=== PATIENT | female | born 1970 | race Hispanic/Latino ===

== ENCOUNTER 2024-01-24 19:19 | Inpatient (IN) | payer OTHER ==
[2024-01-24 19:48] LABS: #Basophils 0.04 10x3/uL (0.0-0.2); %Basophils 0.4 % (0.0-1.0); %Eosinophils 1.5 % (0.0-10.0); %Lymphocytes 22.7 % (21.0-51.0); %Monocytes 8.1 % (0.0-10.0); %Neutrophils 66.9 % (42.0-75.0); Hematocrit 29.7 % (36.0-47.0); Hemoglobin 9.8 g/dL (12.0-16.0); Mean Corpuscular Hemoglobin 31.2 pg (27.0-31.0); Mean Corpuscular Volume 94.6 fL (78.0-98.0); Mean Platelet Volume 10.1 fL (7.4-10.4); Platelet Count 257 10x3/uL (130-400); RBC Distribution Width 12.3 % (11.5-14.5); Red Blood Cell (RBC) Count 3.14 mill/uL (4.20-5.40)
[2024-01-24 20:11] LABS: ALT (SGPT) 23 U/L (8-55); AST (SGOT) 48 U/L (5-34); Albumin 3.2 g/dL (3.5-5.0); Alkaline Phosphatase 80 U/L (40-110); Anion Gap 16 mmol/L (10-20); BUN (Urea Nitrogen) 44 mg/dL (9.8-20.1); Bilirubin, Total 0.4 mg/dL (0.2-1.2); Calc. Creatinine Clearance 0 mL/min (70-130); Calcium 8.6 mg/dL (7.8-10.44); Carbon Dioxide 18 mmol/L (22-29); Chloride 109 mmol/L (98-107); Estimated GFR 31; Glucose 160 mg/dL (70-105); Potassium 4.5 mmol/L (3.5-5.1); Protein, Total 7.2 g/dL (6.0-8.3); Sodium 138 mmol/L (136-145)
[2024-01-24 20:18] LABS: Troponin I 16.884 ng/mL (< 0.028)
[2024-01-24] MEDS ORDERED: Heparin 25,000 UNITS/D5W 500 ml bag ONE (20:26)
[2024-01-24] MEDS ORDERED: Aspirin Chewable 81 MG TAB ONE (20:26)
[2024-01-24] MEDS ORDERED: Heparin 10,000 UNITS/ 10 ML VIAL ONE (20:26)
[2024-01-24 20:54] LABS: INR-International Normal Ratio 1.2; PTT 33.7 sec (22.9-36.1); Prothrombin Time 15.4 sec (12.0-14.7)
[2024-01-24] MEDS ORDERED: Furosemide 20 MG (2 mL) VIAL ONE (22:29)
[2024-01-24 22:33] LABS: #Basophils 0.05 10x3/uL (0.0-0.2); %Basophils 0.6 % (0.0-1.0); %Eosinophils 1.1 % (0.0-10.0); %Lymphocytes 19.7 % (21.0-51.0); %Monocytes 7.9 % (0.0-10.0); %Neutrophils 70.5 % (42.0-75.0); Hematocrit 27.7 % (36.0-47.0); Hemoglobin 9.3 g/dL (12.0-16.0); Mean Corpuscular HGB CONC 33.6 g/dL (32.0-36.0); Mean Corpuscular Hemoglobin 32.2 pg (27.0-31.0); Mean Corpuscular Volume 95.8 fL (78.0-98.0); Mean Platelet Volume 10.1 fL (7.4-10.4); Platelet Count 223 10x3/uL (130-400); RBC Distribution Width 12.3 % (11.5-14.5); Red Blood Cell (RBC) Count 2.89 mill/uL (4.20-5.40)
[2024-01-24] MEDS ORDERED: Acetaminophen 325 MG TAB PO PRN (22:33)
[2024-01-24] MEDS ORDERED: Dextrose 50% Abboject 50 ML SYRINGE SLOW IVP PRN (22:43)
[2024-01-24] MEDS ORDERED: Insulin Lispro 100 UNIT/ML 10 ML VIAL SC PRN (22:43)
[2024-01-24] MEDS ORDERED: Dextrose 5% in Water 1,000 ML IV PRN (22:43)
[2024-01-24] MEDS ORDERED: Glucagon 1 MG/ML KIT IM PRN (22:43)
[2024-01-24 22:50] LABS: Anion Gap 17 mmol/L (10-20); BUN (Urea Nitrogen) 43 mg/dL (9.8-20.1); Calc. Creatinine Clearance 0 mL/min (70-130); Calcium 8.1 mg/dL (7.8-10.44); Carbon Dioxide 14 mmol/L (22-29); Chloride 109 mmol/L (98-107); Estimated GFR 34; Glucose 165 mg/dL (70-105); Potassium 4.3 mmol/L (3.5-5.1); Sodium 136 mmol/L (136-145)
[2024-01-24 23:14] LABS: Critical Call Chem Troponin I RESULT DECREASING; Troponin I 15.838 ng/mL (< 0.028)
[2024-01-24] MEDS ORDERED: Heparin 25,000 units/D5W 500 ML IVPB SCH (23:15)
[2024-01-24 23:33] LABS: Actual Bicarbonate (HCO3v) 18.4 mEq/L (22-28); Analyzer IN Cardio ER; Base Excess -7.6 mEq/L (-2.0 to +3.0); Calcium, Ionized (venous) 1.07 mmol/L (1.16-1.32); Chloride (VBG) 107 mmol/L (98-106); Hematocrit-VBG 19 % (36.0-47.0); Hemoglobin (Hb) 6.6 g/dL (11.7-16.0); Potassium (VBG) 4.26 mmol/L (3.70-5.30); Sodium 137 mmol/L (133-146); pH (venous) 7.286 (7.32-7.43)
[2024-01-24] MEDS: Heparin 10,000 UNITS/ 10 ML VIAL SLOW IVP SCH (23:34)
[2024-01-24] MEDS: Nitroglycerin 2% Ointment 1 INCH/1 GM Packet TOP SCH (23:40)
[2024-01-24] MEDS: Pantoprazole 40 MG VIAL IVP SCH (23:43)
[2024-01-24] MEDS: Sodium Bicarb 50 MEQ/50 ML Abboject 8.4% SYRINGE IVP SCH ×2 (23:58→23:59)
[2024-01-25] MEDS: Heparin 5,000 UNITS/ML VIAL SLOW IVP SCH (00:09)
[2024-01-25 02:15] LABS: Critical Call Chem Troponin I RESULT DECREASING; Troponin I 15.074 ng/mL (< 0.028)
[2024-01-25 04:03] LABS: #Basophils 0.03 10x3/uL (0.0-0.2); %Basophils 0.4 % (0.0-1.0); %Lymphocytes 21.6 % (21.0-51.0); %Monocytes 7.3 % (0.0-10.0); %Neutrophils 69.3 % (42.0-75.0); Hematocrit 25.7 % (36.0-47.0); Hemoglobin 8.5 g/dL (12.0-16.0); Mean Corpuscular HGB CONC 33.1 g/dL (32.0-36.0); Mean Corpuscular Hemoglobin 31.3 pg (27.0-31.0); Mean Corpuscular Volume 94.5 fL (78.0-98.0); Mean Platelet Volume 10.7 fL (7.4-10.4); Platelet Count 222 10x3/uL (130-400); RBC Distribution Width 12.4 % (11.5-14.5); Red Blood Cell (RBC) Count 2.72 mill/uL (4.20-5.40)
[2024-01-25 04:16] LABS: Hemoglobin A1c 7.4 % (4.0-6.0)
[2024-01-25 04:29] LABS: Anion Gap 16 mmol/L (10-20); BUN (Urea Nitrogen) 45 mg/dL (9.8-20.1); Calc. Creatinine Clearance 46 mL/min (70-130); Calcium 7.8 mg/dL (7.8-10.44); Carbon Dioxide 20 mmol/L (22-29); Cardiac Risk 4.8 (Less than 4.5); Chloride 106 mmol/L (98-107); Cholesterol 140 mg/dl (< 200 Desired); Estimated GFR 38; Glucose 170 mg/dL (70-105); HDL Cholesterol 29 mg/dL (>60 Neg Risk); LDL Cholesterol, Calculated 87 mg/dL; Potassium 3.8 mmol/L (3.5-5.1); Sodium 138 mmol/L (136-145); Triglycerides 118 mg/dL (Less than 150)
[2024-01-25] MEDS: Heparin 10,000 UNITS/ 10 ML VIAL SLOW IVP SCH (05:18)
[2024-01-25 05:30] VITALS: BMI 31.8
[2024-01-25] MEDS: Furosemide 20 MG (2 mL) VIAL SLOW IVP SCH (06:20)
[2024-01-25] MEDS: Polyethylene Glycol 3350 17 GM Packet PO SCH (08:25)
[2024-01-25] MEDS: Senokot S 8.6-50 MG TAB PO SCH (08:27)
[2024-01-25] MEDS: Pantoprazole 40 MG VIAL IVP SCH (08:32)
[2024-01-25] MEDS: FLU (Fluarix Triv) TS24-25(6MOS UP)/PF 45 MCG/0.5 ML Syringe IM ONE (08:39)
[2024-01-25] MEDS ORDERED: Heparin 10,000 UNITS/ 10 ML VIAL ONE (10:33)
[2024-01-25] MEDS ORDERED: Nitroglycerin 50 MG/250 ML BOT 0 ML ONE (10:33)
[2024-01-25 11:25] LABS: Hematocrit 26.2 % (36.0-47.0); Hemoglobin 8.9 g/dL (12.0-16.0)
[2024-01-25] MEDS ORDERED: Midazolam HCl 2 mg/2 ml Vial ONE (12:28)
[2024-01-25] MEDS ORDERED: Iopamidol 370 76% 100 ML VIAL ONE (13:38)
[2024-01-25] MEDS: Atorvastatin Calcium 40 MG TAB PO SCH (21:00)
[2024-01-26 04:41] LABS: #Basophils 0.04 10x3/uL (0.0-0.2); %Basophils 0.6 % (0.0-1.0); %Eosinophils 2.3 % (0.0-10.0); %Lymphocytes 22.5 % (21.0-51.0); %Monocytes 10.3 % (0.0-10.0); Hematocrit 27.3 % (36.0-47.0); Hemoglobin 8.9 g/dL (12.0-16.0); Mean Corpuscular HGB CONC 32.6 g/dL (32.0-36.0); Mean Corpuscular Hemoglobin 31.7 pg (27.0-31.0); Mean Corpuscular Volume 97.2 fL (78.0-98.0); Mean Platelet Volume 10.3 fL (7.4-10.4); Platelet Count 247 10x3/uL (130-400); RBC Distribution Width 12.4 % (11.5-14.5); Red Blood Cell (RBC) Count 2.81 mill/uL (4.20-5.40)
[2024-01-26 04:57] LABS: Hemoglobin A1c 7.4 % (4.0-6.0)
[2024-01-26 07:36] LABS: Anion Gap 15 mmol/L (10-20); BUN (Urea Nitrogen) 42 mg/dL (9.8-20.1); Calc. Creatinine Clearance 41 mL/min (70-130); Carbon Dioxide 19 mmol/L (22-29); Chloride 108 mmol/L (98-107); Estimated GFR 34; Glucose 178 mg/dL (70-105); Magnesium 2.3 mg/dL (1.6-2.6); Potassium 4.1 mmol/L (3.5-5.1); Sodium 138 mmol/L (136-145)
[2024-01-26] MEDS: Clopidogrel Bisulfate 300 MG TAB PO SCH (08:18)
[2024-01-26] MEDS: Carvedilol 3.125 MG TAB PO SCH (08:18)
[2024-01-26] MEDS: Aspirin 81 mg Enteric Coated Tablet PO SCH (08:18)
[2024-01-26] MEDS: Enoxaparin 80 MG (0.8 mL) SYRINGE SC SCH (08:18)
[2024-01-26] MEDS: Insulin Lispro 100 UNIT/ML 10 ML VIAL SC PRN (18:00)
[2024-01-26 19:08] LABS: Influenza A by NAA Not Detected (NotDetected); Influenza B by NAA Not Detected (NotDetected); RSV by NAA DETECTED (NotDetected); SARS-CoV-2 NAA Rapid Test Not Detected (NotDetected)
[2024-01-26] MEDS: Ondansetron PF 4 MG/2 ML Vial IVP PRN (20:45)
[2024-01-27 04:44] LABS: #Basophils 0.04 10x3/uL (0.0-0.2); %Basophils 0.6 % (0.0-1.0); %Eosinophils 3.5 % (0.0-10.0); %Lymphocytes 25.1 % (21.0-51.0); %Monocytes 9.4 % (0.0-10.0); %Neutrophils 61.1 % (42.0-75.0); Hematocrit 27.1 % (36.0-47.0); Hemoglobin 8.9 g/dL (12.0-16.0); Mean Corpuscular HGB CONC 32.8 g/dL (32.0-36.0); Mean Corpuscular Hemoglobin 31.7 pg (27.0-31.0); Mean Corpuscular Volume 96.4 fL (78.0-98.0); Mean Platelet Volume 10.7 fL (7.4-10.4); Platelet Count 231 10x3/uL (130-400); RBC Distribution Width 12.2 % (11.5-14.5); Red Blood Cell (RBC) Count 2.81 mill/uL (4.20-5.40)
[2024-01-27 04:59] LABS: Anion Gap 18 mmol/L (10-20); BUN (Urea Nitrogen) 48 mg/dL (9.8-20.1); Calc. Creatinine Clearance 37 mL/min (70-130); Calcium 8.1 mg/dL (7.8-10.44); Carbon Dioxide 17 mmol/L (22-29); Chloride 106 mmol/L (98-107); Estimated GFR 30; Glucose 177 mg/dL (70-105); Potassium 4.5 mmol/L (3.5-5.1); Sodium 136 mmol/L (136-145)
[2024-01-27] MEDS ORDERED: Benzonatate 100 MG CAP PO PRN (09:18)
[2024-01-27] MEDS ORDERED: guaiFENesin/Codeine 200 mg/20 mg 10 ml Cup PO PRN (09:18)
[2024-01-27] MEDS: Clopidogrel Bisulfate 75 MG TAB PO SCH (10:14)
[2024-01-27] MEDS: Furosemide 20 MG (2 mL) VIAL SLOW IVP SCH (10:14)
[2024-01-27] MEDS: Enoxaparin 80 MG (0.8 mL) SYRINGE SC SCH (10:14)
[2024-01-27 13:33] VITALS: BP 105/77; TEMP 98.1
[2024-01-27] MEDS: guaiFENesin ER 600 MG TAB PO SCH (13:37)
[2024-01-27] MEDS ORDERED: guaiFENesin ER 600 MG TAB PO SCH (21:00)
== END 2024-01-27 14:25 | disposition short-term general hospital (02) | DRG 280 ==
LOC: ERS 19:19 → PCU 21:36
PROVIDERS: ADMIT Internal Medicine; ATTEND Family Medicine
PROC: 4A023N7 Measurement of Cardiac Sampling and Pressure, Left Heart, Percutaneous Approach (ICD-10-PCS; principal; 2024-01-25)
PROC: B2111ZZ Fluoroscopy of Multiple Coronary Arteries using Low Osmolar Contrast (ICD-10-PCS; 2024-01-25)
DX: I21.4 Non-ST elevation (NSTEMI) myocardial infarction (principal); I50.43 Acute on chronic combined systolic (congestive) and diastolic (congestive) heart failure; K92.1 Melena; N17.9 Acute kidney failure, unspecified; E11.9 Type 2 diabetes mellitus without complications; I25.10 Atherosclerotic heart disease of native coronary artery without angina pectoris; M06.9 Rheumatoid arthritis, unspecified; K59.00 Constipation, unspecified; D64.9 Anemia, unspecified; I25.5 Ischemic cardiomyopathy; J06.9 Acute upper respiratory infection, unspecified; B97.4 Respiratory syncytial virus as the cause of diseases classified elsewhere; Z87.891 Personal history of nicotine dependence; Z88.5 Allergy status to narcotic agent
CPT/HCPCS: 0241U; 36415; 36416; 71045; 74176; 80048; 80053; 80061; 82010; 82805; 83036; 83605; 83735; 83880; 84484; 85025; 85610; 85730; 86850; 86900; 86901; 93005; 93306; 93454; 96365; 96374; 96375; 97139; 99152; C1769; C1887; J1644; J1650; J1815; J1940; J2250; J2405; J2470; Q9967